=== PATIENT | male | born 1965 | race Caucasian/White ===

== ENCOUNTER 2024-07-21 15:33 | Inpatient (IN) | payer SELFPAY ==
[2024-07-21] MEDS ORDERED: VANCOMYCIN 1 GM/VIAL ONE (16:03)
[2024-07-21] MEDS ORDERED: NA CHLORIDE 0.9% 500 ML ONE (16:04)
[2024-07-21] MEDS ORDERED: ACETAMINOPHEN 500 MG TAB ONE (16:04)
[2024-07-21] MEDS ORDERED: FAMOTIDINE 20 MG/2 ML VIAL IV ONE (16:04)
[2024-07-21] MEDS ORDERED: NA CHLORIDE 0.9% 100 ML ONE (16:04)
[2024-07-21] MEDS ORDERED: TDAP (DIPHTH,PERTUSS(ACELL),TET VAC) 0.5 ML VIAL IMVAC ONE (16:04)
[2024-07-21] MEDS ORDERED: PIPERACIL/TAZO 3.375 GM VIAL IV ONE (16:05)
[2024-07-21] MEDS ORDERED: NA CHLORIDE 0.9% 3,000 ML ONE (16:05)
[2024-07-21 16:55] LABS: Absolute Eosinophils 0.1 K/uL (0-0.5); Absolute Lymphocytes (CBC) 0.7 K/uL (0.7-4.9); Absolute Monocytes 1.4 K/uL (0.1-1.3); Absolute Neutrophil 12.8 K/uL (1.8-8.0); Basophils % 0.2 % (0-1.3); Eosinophils % 0.4 % (0-4.4); Hematocrit 43.1 % (39.6-49.0); Hemoglobin 15.1 g/dL (13.6-17.9); Lymphocytes % 4.9 % (15.3-44.8); MCH 33.1 pg (27.0-35.0); MCV 94.6 fL (80-100); MPV 7.4 fL (7.6-11.3); Monocytes % 9.3 % (3.3-12.3); Neutrophils % 85.2 % (41.7-73.7); Platelets 371 thou/uL (152-406); RBC Red Blood Cell Count 4.56 M/uL (4.33-5.43); Red Cell Distribution Width 12.1 % (12.1-15.2)
[2024-07-21 16:56] LABS: PT Prothrombin Time 13.9 SECONDS (10-13.0); Protime INR 1.23
[2024-07-21 17:10] LABS: ALT/SGPT 17 U/L (16-61); Albumin 3.1 g/dL (3.4-5.0); Albumin/Globulin Ratio 0.7 (1.1-1.8); Alkaline Phosphatase 125 U/L (45-117); Anion Gap 11.2 mEq/L (5.0-15.0); BUN Blood Urea Nitrogen 17 mg/dL (7-18); Bicarbonate 25 mEq/L (21-32); Bilirubin Direct 0.2 mg/dL (0-0.2); Bilirubin Indirect, Calculated 0.5 mg/dL (0.2-0.8); Bilirubin Total 0.7 mg/dL (0.2-1.0); Globulin 4.5 g/dL (2.3-3.5); Glomerular Filtration Rate 76 ml/min (=/>90); Glucose Level 389 mg/dL (74-106); Magnesium 2.3 mg/dL (1.6-2.4); NT PRO-BNP 381 pg/mL (<125); Potassium 4.2 mEq/L (3.5-5.1); Protein, Total 7.6 g/dL (6.4-8.2); Sodium Level 125 mEq/L (136-145); Troponin High Sensitivity 12.7 pg/mL (<58.9)
[2024-07-21 17:12] LABS: AST/SGOT < 10 U/L (15-37)
[2024-07-21 17:56] LABS: Blood Morphology Comment NOT SEEN (NOT SEEN); Platelet Estimate ADEQ; White Blood Cell Scan OK (OK)
--- NOTE | 2024-07-21 18:10 | RAD REPORT ---
Exam:Foot Right 3 View CLINICAL HISTORY: Right foot pain FINDINGS: No fracture or dislocation seen. 1.5 cm radiopaque foreign body within the subcutaneous tissues adjacent to the first terminal tuft. Soft tissue swelling. No bony erosions visualized.
--- NOTE | 2024-07-21 18:11 | RAD REPORT ---
Procedure: Chest Single View HISTORY: Cough COMPARISON: 2021 FINDINGS: The lungs appear clear of acute infiltrate. No significant pleural effusion noted. The heart is probably upper limits normal size. IMPRESSION: No acute abnormality is displayed.
--- NOTE | 2024-07-21 19:39 | EDPHYS ---
Physician Documentation [facility] Name: Ramez Chong Age: 59 yrs Sex: Male : 1965 Arrival Date: 07/21/2024 Time: 15:33 Bed 7 Private MD: GEMMA Physician Juan Pacheco HPI: 07/21 19:27 This 59 yrs old Male presents to ER via Wheelchair with complaints of Foot kev Pain. 19:27 The patient presents with an abscess, small, decreased range of motion, an injury, kev pain, swelling, tenderness. The complaints affect the right foot, ball of right foot, right first toe and right second toe. Context: The problem was sustained at an unknown location, resulted from an unknown cause, the patient can partially bear weight. Onset: The symptoms/episode began/occurred 3 day(s) ago. Modifying factors: The symptoms are alleviated by nothing, the symptoms are aggravated by weight bearing, movement, wearing shoes. Associated signs and symptoms: Pertinent positives: calf tenderness, fever, swelling, warmth. Severity of symptoms: At their worst the symptoms were moderate, in the emergency department the symptoms are unchanged. The patient has not experienced similar symptoms in the past. Historical: - Allergies: 15:42 No Known Allergies; hb - Home Meds: 15:42 None [Active]; hb - PMHx: 15:42 diabetes mellitus; Hypertensive disorder; hb - PSHx: 15:42 Tonsillectomy; hb - Immunization history:: Adult Immunizations up to date. - Infectious Disease History:: Denies. - Social history:: Smoking status: Patient reports the use of cigarette tobacco products. ROS: 19:31 Eyes: Negative for injury, pain, redness, and discharge, ENT: Negative for injury, kev pain, and discharge, Neck: Negative for injury, pain, and swelling, Cardiovascular: Negative for chest pain, palpitations, and edema, Respiratory: Negative for shortness of breath, cough, wheezing, and pleuritic chest pain, Abdomen/GI: Negative for abdominal pain, nausea, vomiting, diarrhea, and constipation, Back: Negative for injury and pain, : Negative for injury, bleeding, discharge, and swelling, Neuro: Negative for headache, weakness, numbness, tingling, and seizure, Psych: Negative for depression, anxiety, suicide ideation, homicidal ideation, and hallucinations, Allergy/Immunology: Negative for hives, rash, and allergies, Hematologic/Lymphatic: Negative for swollen nodes, abnormal bleeding, and unusual bruising, 19:31 MS/extremity: Positive for injury or acute deformity, decreased range of motion, erythema, swelling, tenderness, warmth, of the ball of right foot, right second toe, right third toe and right fourth toe, Exam: 19:33 Constitutional: This is a well developed, well nourished patient who is awake, alert, kev and in no acute distress. Head/Face: Normocephalic, atraumatic. Eyes: Pupils equal round and reactive to light, extra-ocular motions intact. Lids and lashes normal. Conjunctiva and sclera are non-icteric and not injected. Cornea within normal limits. Periorbital areas with no swelling, redness, or edema. ENT: Nares patent. No nasal discharge, no septal abnormalities noted. Tympanic membranes are normal and external auditory canals are clear. Oropharynx with no redness, swelling, or masses, exudates, or evidence of obstruction, uvula midline. Mucous membranes moist. Neck: Trachea midline, no thyromegaly or masses palpated, and no cervical lymphadenopathy. Supple, full range of motion without nuchal rigidity, or vertebral point tenderness. No Meningismus. Chest/axilla: Normal chest wall appearance and motion. Nontender with no deformity. No lesions are appreciated. Respiratory: Lungs have equal breath sounds bilaterally, clear to auscultation and percussion. No rales, rhonchi or wheezes noted. No increased work of breathing, no retractions or nasal flaring. Abdomen/GI: Soft, non-tender, with normal bowel sounds. No distension or tympany. No guarding or rebound. No evidence of tenderness throughout. Back: No spinal tenderness. No costovertebral tenderness. Full range of motion. Male : Normal genitalia with no discharge or lesions. Neuro: Awake and alert, GCS 15, oriented to person, place, time, and situation. Cranial nerves II-XII grossly intact. Motor strength 5/5 in all extremities. Sensory grossly intact. Cerebellar exam normal. Normal gait. Psych: Awake, alert, with orientation to person, place and time. Behavior, mood, and affect are within normal limits. 19:33 Cardiovascular: Rate: tachycardic, actual rate is 109 bpm, Rhythm: regular, Pulses: Pulses are 4+ in bilateral radial, brachial, femoral, popliteal, posterior tibial and and dorsalis pedis arteries.. Heart sounds: normal, Edema: is not appreciated, JVD: is not appreciated, 19:33 ECG was reviewed by the Attending Physician. 19:33 Musculoskeletal/extremity: ROM: limited active range of motion, limited passive range of motion, limited active range of motion due to pain, limited passive range of motion due to pain, Circulation is intact in all extremities. decreased sensation, Compartment Syndrome exam of affected extremity: is normal. Weight bearing: can bear weight with assistance only, assist, DVT Exam: negative Homans' sign noted on exam, no appreciated bluish discoloration, pain, swelling, tenderness, erythema, increased warmth, that is moderate, that is marked, of the right leg, of the ball of right foot, right first toe, right second toe, right third toe and right fourth toe, Calves: are tender, on right, 19:33 Skin: abscess, that is small, that is moderate sized, of the right first toe, right second toe and right third toe, cellulitis, that is moderate, on the right foot, induration, that is moderate is noted, injury, Vital Signs: 15:39 BP 154 / 92; Pulse 116; Resp 18; Temp 99.8(O); Pulse Ox 97% on R/A; Weight 111.13 kg; hb Height 6 ft. 1 in. ; Pain 9/10; 17:00 BP 147 / 88; Pulse 96; Resp 15; Temp 100.5; Pulse Ox 97% ; jl7 18:23 BP 159 / 92; Pulse 96; Resp 15; Temp 99.3; Pulse Ox 97% ; jl7 19:00 BP 158 / 82; Pulse 97; Resp 18; Pulse Ox 95% on R/A; al5 19:30 BP 157 / 99; Pulse 97; Resp 16; Pulse Ox 96% on R/A; al5 20:30 BP 138 / 99; Pulse 91; Resp 16; Pulse Ox 96% on R/A; al5 15:39 Body Mass Index 32.32 (111.13 kg, 185.42 cm) hb 15:39 Pain Scale: Adult hb MDM: 15:53 Medical Screening Exam initiated kev 19:39 Differential diagnosis: fracture, foreign body, arthritis, gout, cellulitis. Data [facility] reviewed: vital signs, nurses notes, lab test result(s), EKG, radiologic studies, doppler, plain films. Consideration of Admission/Observation Patient was admitted/placed on observation. Escalation of care including admission/observation considered. I considered the following discharge prescriptions or medication management in the emergency department Medications were administered in the Emergency Department. See MAR. Independent interpretation of the following test(s) in the Emergency Department EKG: See my EKG interpretation above. Test considered but Not performed: MRI: no mri foot. Historians other than the Patient: Spouse/Significant Other: geri informed. Care significantly affected by the following chronic conditions: Diabetes, Hypertension, Obesity. Counseling: I had a detailed discussion with the patient and/or guardian regarding the historical points, exam findings, and any diagnostic results supporting the discharge/admit diagnosis, the presence of at least one elevated blood pressure reading (>120/80) during this emergency department visit, lab results, the need for further work-up and treatment in the hospital. 07/21 15:55 Order name: Basic Metabolic Panel; Complete Time: 19:17 [facility] 07/21 15:55 Order name: CBC with Diff; Complete Time: 19:17 [facility] 07/21 15:55 Order name: LFT's; Complete Time: 19:17 kev 07/21 15:55 Order name: Magnesium; Complete Time: 19:17 kev 07/21 15:55 Order name: NT PRO-BNP; Complete Time: 19:17 [facility] 07/21 15:55 Order name: PT-INR; Complete Time: 19:17 kev 07/21 15:55 Order name: Troponin HS; Complete Time: 19:17 kev 07/21 15:55 Order name: Blood Culture Adult (2) [facility] 07/21 16:07 Order name: Lactate w/ 2H reflex if indic.; Complete Time: 19:17 la1 07/21 17:56 Order name: CBC Smear Scan; Complete Time: 19:17 EDMS 07/21 19:21 Order name: Urine Osmolality [facility] 07/21 19:21 Order name: Urine Sodium Random 07/21 19:21 Order name: Osmolality, Serum [facility] 07/21 19:30 Order name: Wound Culture [facility] 07/21 20:05 Order name: CBC with Automated Diff EDMS 07/21 20:05 Order name: CBC with Automated Diff EDNV 07/21 20:05 Order name: Comprehensive Metabolic Panel [facility] 07/21 20:05 Order name: Comprehensive Metabolic Panel [facility] 07/21 20:37 Order name: Glucose, Ancillary Testing [facility] 07/21 15:55 Order name: XRAY Chest (1 view); Complete Time: 19:17 [facility] 07/21 15:55 Order name: Foot Right 3 View XRAY; Complete Time: 19:17 [facility] 07/21 19:30 Order name: US Extremity Venous W Compression Seven [facility] 07/21 15:55 Order name: EKG; Complete Time: 15:55 [facility] 07/21 20:05 Order name: CONS Physician Consult [facility] 07/21 15:55 Order name: Cardiac monitoring; Complete Time: 18:54 [facility] 07/21 15:55 Order name: EKG - Nurse/Tech; Complete Time: 16:13 [facility] 07/21 15:55 Order name: IV Saline Lock; Complete Time: 18:54 [facility] 07/21 15:55 Order name: Labs collected and sent; Complete Time: 18:54 [facility] 07/21 15:55 Order name: O2 Per Protocol; Complete Time: 18:54 [facility] 07/21 15:55 Order name: O2 Sat Monitoring; Complete Time: 18:54 [facility] 07/21 15:56 Order name: IV Saline Lock - Large Bore; Complete Time: 17:25 [facility] 07/21 19:30 Order name: Wound dressing: wet to dry; Complete Time: 19:56 [facility] EC:33 Rate is 109 beats/min. Rhythm is regular. QRS [place] is Normal. ME interval is normal. [facility] QRS interval is normal. QT interval is normal. No Q waves. T waves are Normal. No ST changes noted. Clinical impression: Sinus tachycardia and No evidence of ischemia. Interpreted by me. Reviewed by me. Administered Medications: 16:30 Drug: NS 0.9% IV (30 ml/kg) 30 ml/kg IV at bolus once; Sepsis Protocol; to be given as jl7 a bolus over 90 minutes Route: IV; Rate: bolus; Site: right antecubital; 18:30 Follow up: Response: No adverse reaction; IV Status: Completed infusion; IV Intake: jl7 333.9ml 16:30 Drug: vancoMYCIN IVPB 2 grams IVPB at calculated rate once Route: IVPB; Rate: jl7 calculated rate; Site: right antecubital; 18:30 Follow up: Response: No adverse reaction; IV Status: Completed infusion jl7 16:45 Drug: Piperacillin-Tazobactam IVPB 3.375 grams IVPB once over 60 mins; (mix in NS 100 jl7 mL) Route: IVPB; Infused Over: 60 mins; Site: left hand; 17:45 Follow up: Response: No adverse reaction; IV Status: Completed infusion 7 17:01 Drug: Famotidine IVP 20 mg IVP once; dilute with 10 mL 0.9% NaCl; give over 2 minutes jl7 Route: IVP; Site: left hand; 19:00 Follow up: Response: No adverse reaction 7 17:02 Drug: Boostrix Tdap IM 0.5 ml IM once; as a single dose Route: IM; Site: right deltoid; 19:05 Follow up: Response: No adverse reaction jl7 18:23 Not Given (Pt 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 and 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): [id number] mg PO once jl7 20:31 Drug: Insulin Regular Human IVP 10 units IVP once {Co-Signature: kd3 (Anny Laughlin al5 RN).} Route: IVP; Site: left hand; 21:00 Follow up: Response: No adverse reaction; Medication Administered at Departure al5 20:34 Drug: Lovenox Sub-Q 40 mg Sub-Q once Route: Sub-Q; Site: right lower abdomen; al5 21:00 Follow up: Response: No adverse reaction al5 20:35 Not Given (not availablee): insulin [id number] units Sub-Q once al5 21:24 Not Given (medications unavailable, charge nurse awaree): Banana Bag - (ns 0.9% 1000 al5 ml, folic acid ivpb 1 mg, [id number] mg, multivitamin1 amp) IV at 125 ml/hr once Disposition Summary: 07/21/24 19:39 Hospitalization Ordered Notes: Hospitalization Status: Inpatient Admission kev Provider: Gareth Galvan cha Location: Telemetry/MedSurg (Inpatient) kev Condition: Fair kev Problem: new kev Symptoms: have worsened kev Bed/Room Type: Standard kev Room Assignment: 406(07/21/24 20:13) vc1 Diagnosis - Type 1 diabetes mellitus with hyperglycemia kev - Cellulitis and acute lymphangitis of other parts of limb - right foot, toes kev extensive - Fever, unspecified kev - Elevated white blood cell count kev Forms: - Medication Reconciliation Form kev - SBAR form kev - Leadership Thank You Letter kev Signatures: Dispatcher [employer] EDMS Jaun Pacheco MD MD cha Baxter, Heather, RN RN Jacinto Rdz RN RN jl7 Tomeka Ramírez RN RN vc1 Elizabeth Zambrano RN RN al5 Anny Laughlin RN kd3 Corrections: (The following items were deleted from the chart) 19:31 19:31 Wound Culture+BA.LAB.BRZ ordered. EDNV EDMS 20:13 19:39 kev vc1
--- NOTE | 2024-07-21 19:39 | ER ---
Nurse's Notes [facility] Name: Ramez Chong Age: 59 yrs Sex: Male : 1965 Arrival Date: 07/21/2024 Time: 15:33 Bed 7 Private MD: Diagnosis: Type 1 diabetes mellitus with hyperglycemia;Cellulitis and acute lymphangitis of other parts of limb-right foot, toes extensive;Fever, unspecified;Elevated white blood cell count Presentation: 07/21 15:39 Chief complaint: Right foot redness, swelling, and discolored toes x 3 days. Sent from [facility], gave Tylenol for T102. Coronavirus screen: At this time, the client does not indicate any symptoms associated with coronavirus-19. Ebola Screen: No symptoms or risks identified at this time. Initial Sepsis Screen: Does the patient meet any 2 criteria? No. Patient's initial sepsis screen is negative. Does the patient have a suspected source of infection? No. Patient's initial sepsis screen is negative. Risk Assessment: Do you want to hurt yourself or someone else? Patient reports no desire to harm self or others. Onset of symptoms was July 18, 2024. 15:39 Method Of Arrival: Wheelchair hb 15:39 Acuity: VIVEK 2 hb Historical: - Allergies: 15:42 No Known Allergies; hb - Home Meds: 15:42 None [Active]; hb - PMHx: 15:42 diabetes mellitus; Hypertensive disorder; hb - PSHx: 15:42 Tonsillectomy; hb - Immunization history:: Adult Immunizations up to date. - Infectious Disease History:: Denies. - Social history:: Smoking status: Patient reports the use of cigarette tobacco products. Screenin:00 [facility] ED Fall Risk Assessment (Adult) History of falling in the last 3 months, jl7 including since admission No falls in past 3 months (0 pts) Confusion or Disorientation No (0 pts) Intoxicated or Sedated No (0 pts) Impaired Gait No (0 pts) Mobility Assist Device Used No (0 pt) Altered Elimination No (0 pt) Score/Fall Risk Level 0 - 2 = Low Risk Oriented to surroundings, Maintained a safe environment. Abuse screen: Denies threats or abuse. Denies injuries from another. Nutritional screening: No deficits noted. Tuberculosis screening: No symptoms or risk factors identified. Assessment: 19:15 General: Appears in no apparent distress. comfortable, Behavior is calm, cooperative. al5 Pain: Complains of pain in right foot. Neuro: Level of Consciousness is awake, alert, obeys commands, Oriented to person, place, time, situation. Cardiovascular: Capillary refill < 3 seconds Patient's skin is warm and dry. Rhythm is sinus rhythm. Respiratory: Airway is patent Respiratory effort is even, unlabored, Respiratory pattern is regular, symmetrical. GI: No signs and/or symptoms were reported involving the gastrointestinal system. : No signs and/or symptoms were reported regarding the genitourinary system. EENT: No signs and/or symptoms were reported regarding the EENT system. Derm: wound to bottom of R foot, redness noted. R third and fourth toes of blackish-purple color. Musculoskeletal: Reports pain in right foot. 20:39 Reassessment: Patient appears in no apparent distress at this time. No changes from al5 previously documented assessment. Patient and/or family updated on plan of care and expected duration. Pain level reassessed. Patient is alert, oriented x 3, equal unlabored respirations, skin warm/dry/pink. Vital Signs: 15:39 BP 154 / 92; Pulse 116; Resp 18; Temp 99.8(O); Pulse Ox 97% on R/A; Weight 111.13 kg; hb Height 6 ft. 1 in. ; Pain 9/10; 17:00 BP 147 / 88; Pulse 96; Resp 15; Temp 100.5; Pulse Ox 97% ; jl7 18:23 BP 159 / 92; Pulse 96; Resp 15; Temp 99.3; Pulse Ox 97% ; jl7 19:00 BP 158 / 82; Pulse 97; Resp 18; Pulse Ox 95% on R/A; al5 19:30 BP 157 / 99; Pulse 97; Resp 16; Pulse Ox 96% on R/A; al5 20:30 BP 138 / 99; Pulse 91; Resp 16; Pulse Ox 96% on R/A; al5 15:39 Body Mass Index 32.32 (111.13 kg, 185.42 cm) hb 15:39 Pain Scale: Adult hb ED Course: 15:36 Patient arrived in ED. al6 15:42 Triage completed. hb 15:43 Arm band placed on. hb 15:53 Juan Pacheco MD is Attending Physician. kev 15:59 Jacinto Cuevas, KYMBERLY is Primary Nurse. jl7 16:03 Patient placed in an exam room, on a stretcher. ll1 16:13 EKG done, by ED staff, reviewed by Juan Pacheco MD. em1 16:20 Inserted saline lock: 20 gauge in right antecubital area, using aseptic technique. jl7 Blood collected. Flushed with 10 mL NS. 16:20 Initial lab(s) drawn, by me, sent to lab. First set of blood cultures drawn by me. jl7 16:25 Second set of blood cultures drawn by me. Inserted saline lock: 20 gauge in left hand, jl7 using aseptic technique. Blood collected. Flushed with 10 mL NS. 17:00 Patient has correct armband on for positive identification. Placed in gown. Bed in low jl7 position. Call light in reach. Side rails up X2. Provided Education on: use of call russell. Client placed on continuous cardiac and pulse oximetry monitoring. NIBP monitoring applied. range conservationist on. Pulse ox on. 17:56 XRAY Chest (1 view) In Process Unspecified. EDMS 17:56 Foot Right 3 View XRAY In Process Unspecified. EDMS 19:30 No provider procedures requiring assistance completed. al5 19:37 Gareth Galvan MD is Hospitalizing Provider. kev 20:39 Patient admitted, IV remains in place. al5 Administered Medications: 16:30 Drug: NS 0.9% IV (30 ml/kg) 30 ml/kg IV at bolus once; Sepsis Protocol; to be given as jl7 a bolus over 90 minutes Route: IV; Rate: bolus; Site: right antecubital; 18:30 Follow up: Response: No adverse reaction; IV Status: Completed infusion; IV Intake: jl7 333.9ml 16:30 Drug: vancoMYCIN IVPB 2 grams IVPB at calculated rate once Route: IVPB; Rate: jl7 calculated rate; Site: right antecubital; 18:30 Follow up: Response: No adverse reaction; IV Status: Completed infusion jl7 16:45 Drug: Piperacillin-Tazobactam IVPB 3.375 grams IVPB once over 60 mins; (mix in NS 100 jl7 mL) Route: IVPB; Infused Over: 60 mins; Site: left hand; 17:45 Follow up: Response: No adverse reaction; IV Status: Completed infusion jl7 17:01 Drug: Famotidine IVP 20 mg IVP once; dilute with 10 mL 0.9% NaCl; give over 2 minutes jl7 Route: IVP; Site: left hand; 19:00 Follow up: Response: No adverse reaction jl7 17:02 Drug: Boostrix Tdap IM 0.5 ml IM once; as a single dose Route: IM; Site: right deltoid; jl7 19:05 Follow up: Response: No adverse reaction jl7 18:23 Not Given (Pt 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): [id number] mg PO once jl7 20:31 Drug: Insulin Regular Human IVP 10 units IVP once {Co-Signature: kd3 (Anny Laughlin RN).} Route: IVP; Site: left hand; 21:00 Follow up: Response: No adverse reaction; Medication Administered at Departure al5 20:34 Drug: Lovenox Sub-Q 40 mg Sub-Q once Route: Sub-Q; Site: right lower abdomen; al5 21:00 Follow up: Response: No adverse reaction al5 20:35 Not Given (not availablee): insulin units Sub-Q once al5 21:24 Not Given (medications unavailable, charge nurse awaree): Banana Bag - (ns 0.9% 1000 al5 ml, folic acid ivpb 1 mg, [id number] mg, multivitamin1 amp) IV at 125 ml/hr once Medication: 17:00 Vaccine Information Statement (VIS) provided today. Questions and/or concerns jl7 addressed. VIS edition date: November 06, 2020. Intake: 18:30 IV: 334ml; Total: 334ml. jl7 Outcome: 19:39 Decision to Hospitalize by Provider. kev 21:24 Admitted to Med/surg accompanied by tech, family with patient, via stretcher, room 406, al5 with chart, 21:24 Condition: stable 21:24 Instructed on the need for admit, 21:38 Patient left the ED. kd3 Signatures: Dispatcher [employer] EDMS Juan Pacheco MD MD cha Martinez, Eric em1 Lanny Magaña, RN RN Jacinto Rdz RN RN adolfo7 Mirian Ceja RN RN ll1 Anny Laughlin, RN RN kd3 Elizabeth Zambrano RN RN al5 Michelle Hernandez al6 Anny Laughlin RN kd3 Corrections: (The following items were deleted from the chart) 15:44 15:39 Chief complaint: Right foot redness, swelling, and discolored toes x 3 days. hb hb
[2024-07-21] MEDS ORDERED: ONDANSETRON 4 MG/2 ML VIAL IV PRN (20:00)
--- NOTE | 2024-07-21 20:00 | P.HP ---
Certification for Inpatient Patient admitted to: Inpatient With expected LOS: >2 Midnights Practitioner: I am a practitioner with admitting privileges, knowledge of patient current condition, hospital course, and medical plan of care. Services: Services provided to patient in accordance with Admission requirements found in Title 42 Section 412.3 of the Code of Federal Regulations Patient History Date of Service: 07/21/24 Reason for admission: Diabetic foot History of Present Illness: 59 yrs old Male with past medical history of hypertension, diabetes who was brought to ER with pain in the right foot which has been going on for the last week and has been progressively worsening. Denies any fever or chills. Denies any trauma. Patient started having redness and swelling of right foot especially first toe and second toe. Denies any bleeding. Having subjective fever and chills. Denies any chest pain or shortness of breath. No nausea vomiting or diarrhea. Has difficulty in ambulating. Has a history of neuropathy Patient was assessed in the ER and is admitted for further management of diabetic foot Allergies No Known Allergies Allergy (Unverified 07/21/24 20:05) Home medications list reviewed: Yes - Past Medical/Surgical History Past Medical History: Reviewed- Non-Contributory -: DM, HTN Past Surgical History: Reviewed- Non-Contributory - Social History Smoking Status: Former smoker Review of Systems 10-point ROS is otherwise unremarkable Other: Constitutional: Reports: generalized weakness. Skin: Denies: rash. Allergy/Immun: Denies: rhinorrhea, sneezing. Eyes: Denies: visual loss/blurred. ENT: Denies: earache, nasal congestion. Respiratory: Denies: non productive cough. Cardiovascular: Denies: chest pain, palpitations. GI: Denies: diarrhea, nausea. : Denies: dysuria. Musculoskeletal: Reports: arthritis. Denies: extremity pain. Heme: Denies: bleeding. Endocrine: Denies: polydipsia. Neuro: Reports: dizziness, gait problem, lightheaded, spinning sensation. Psych: Reports: anxiety. All systems rev & neg: except as noted Physical Examination - Vital Signs Temperature: 98.2 F Blood Pressure: 146/72 Pulse: 78 Respirations: 18 Pulse Ox (%): 94 - Physical Exam General: Alert, Oriented x3, Mild distress HEENT: Atraumatic, Normocephalic Neck: Supple Respiratory: Clear to auscultation bilaterally, Normal air movement Cardiovascular: Regular rate/rhythm, Normal S1 S2 Capillary refill: <2 Seconds Gastrointestinal: Soft and benign, W/out hepatosplenomegaly Musculoskeletal: No clubbing, Erythema, Tenderness, Warmth Integumentary: Tenderness/swelling, Erythema, Warmth Neurological: Other (Alert awake nonfocal) Lymphatics: No axilla or inguinal lymphadenopathy - Studies Laboratory Data (last 24 hrs) 07/21/24 07/21/24 07/21/24 16:25 16:25 16:25 WBC 15.00 H Hgb 15.1 Hct 43.1 Plt Count 371 PT 13.9 H INR 1.23 Sodium 125 L Potassium 4.2 BUN 17 Creatinine 1.12 Glucose 389 H Magnesium 2.3 Total Bilirubin 0.7 AST < 10 L ALT 17 Alkaline Phosphatase 125 H Assessment and Plan - Plan Diabetic foot Leukocytosis Started on IV antibiotic X-ray findings noted Surgical consult Pain medications titrated Will obtain cultures Monitor CBC in a.m. Change antibiotic as per sensitivity May need debridement Will keep n.p.o. postmidnight Hyponatremia Dehydration Started on IV hydration Electrolytes monitor and replace accordingly Hypertension Antihypertensives titrated Continue home medications and titrate as needed Hyperlipidemia Continue statin Diabetes uncontrolled with hyperglycemia Insulin sliding scale Accu-Chek before every meal and at bedtime GI/DVT prophylaxis Advanced directive full code Discharge Plan: Home Plan to discharge in: 48 Hours - Advance Directives Does patient have a Living Will: No Does patient have a Durable POA for Healthcare: No - Code Status/Comfort Care Code Status: Full Code Time Spent Managing Pts Care (In Minutes): 48
[2024-07-21] MEDS ORDERED: D10W 125 ML IV PRN (20:03)
[2024-07-21] MEDS ORDERED: GLUCAGON 1 MG/VIAL IM PRN (20:03)
[2024-07-21] MEDS ORDERED: MORPHINE 2 MG/ML SYR IV PRN (20:04)
[2024-07-21] MEDS ORDERED: HYDROCODONE/APAP 5/325 MG TAB PO PRN (20:04)
[2024-07-21] MEDS ORDERED: ENOXAPARIN 40 MG/0.4 ML SQ ONE (20:29)
[2024-07-21] MEDS ORDERED: INSULIN REGULAR (HUMAN) 100 UNIT/ML ONE (20:29)
[2024-07-21] MEDS ORDERED: VANCOMYCIN 1 GM in NA CHLORIDE 0.9% 250 ML IVPB SCH (21:00)
[2024-07-21] MEDS: NA CHLORIDE 0.9% 1,000 ML IV SCH (21:35)
[2024-07-21 21:42] VITALS: BMI 32.3
[2024-07-21] MEDS: ACETAMINOPHEN 325 MG TABLET PO PRN (21:50)
--- NOTE | 2024-07-21 23:58 | RAD REPORT ---
BILATERAL LOWER EXTREMITY VENOUS DOPPLER INDICATION: 59-year-old male with lower extremity pain. COMPARISON: No relevant imaging studies available. TECHNIQUE: Real-time compression sonography combined with color flow Doppler and spectral waveform an alysis was performed evaluating the lower extremity veins. FINDINGS: The bilateral common femoral vein, superficial femoral vein, proximal greater saphenous vein, pro ximal deep femoral vein, and popliteal vein demonstrated normal compressibility. No intraluminal thrombus was identified. There was normal flow and augmentation. Visualized portions of the bilate ral posterior tibial veins are patent. Nonspecific right inguinal lymph nodes, largest measures 1.7 x 1.7 x 1.3 cm and demonstrates fatty hilum, potentially reactive. Please clinically correlate. IMPRESSION: 1. No evidence for bilateral lower extremity deep vein thrombosis. 2. Nonspecific right inguinal lymphadenopathy, potentially reactive, although nonspecific. Please cli nically correlate. Electronically signed by: Malcolm Pemberton MD 07/21/2024 11:51 PM CDT Due to temporary technical issues with the P[employer] reporting system, reports are being anali d by the in-house radiologist without review as a courtesy to ensure prompt reporting the interpreting radiologist is fully responsible for the content of the report. Transcribed Date/Time: 07/21/2024 11:58 PM
[2024-07-22] MEDS: INSULIN REGULAR (HUMAN) 100 UNIT/ML SQ SCH (00:25)
[2024-07-22] MEDS: PIPER TAZO 3.375 GM in NA CHLORIDE 0.9% 100 ML IV SCH (00:25)
[2024-07-22] MEDS: VANCOMYCIN 2 GM in NA CHLORIDE 0.9% 500 ML IVPB SCH ×2 (04:00→17:00)
[2024-07-22] MEDS: VANCOMYCIN 1 GM/VIAL ONE (04:25)
[2024-07-22] MEDS: NA CHLORIDE 0.9% 500 ML ONE (04:26)
[2024-07-22 06:12] LABS: Absolute Basophils 0.1 K/uL (0-0.5); Absolute Eosinophils 0.2 K/uL (0-0.5); Absolute Lymphocytes (CBC) 1.2 K/uL (0.7-4.9); Absolute Monocytes 1.5 K/uL (0.1-1.3); Absolute Neutrophil 10.1 K/uL (1.8-8.0); Basophils % 0.4 % (0-1.3); Eosinophils % 1.7 % (0-4.4); Hematocrit 38.1 % (39.6-49.0); Lymphocytes % 9.1 % (15.3-44.8); MCH 32.5 pg (27.0-35.0); MCHC 34.2 g/dL (32.0-36.0); MCV 95.1 fL (80-100); MPV 7.2 fL (7.6-11.3); Monocytes % 11.7 % (3.3-12.3); Neutrophils % 77.1 % (41.7-73.7); Nucleated Red Blood Cells % 0.1 % (0-0); Platelets 374 thou/uL (152-406); RBC Red Blood Cell Count 4.01 M/uL (4.33-5.43); Red Cell Distribution Width 12.2 % (12.1-15.2)
[2024-07-22 06:30] LABS: Albumin 2.5 g/dL (3.4-5.0); Albumin/Globulin Ratio 0.7 (1.1-1.8); Anion Gap 5.2 mEq/L (5.0-15.0); Bilirubin Total 0.5 mg/dL (0.2-1.0); Globulin 3.8 g/dL (2.3-3.5); Potassium 4.2 mEq/L (3.5-5.1); Protein, Total 6.3 g/dL (6.4-8.2)
[2024-07-22] MEDS: ENOXAPARIN 40 MG/0.4 ML SQ SCH (08:04)
[2024-07-22] MEDS ORDERED: HYDRALAZINE HCL 20 MG/ML VIAL IV PRN (11:51)
--- NOTE | 2024-07-22 11:56 | P.PN ---
Subjective Date of Service: 07/22/24 Chief Complaint: Diabetic foot Subjective: No chest pain or shortness of breath. No nausea or vomiting. No abdominal pain. No obvious bleeding. Looks comfortable in the bed. Right foot is number, difficult to evaluate pain. Objective: General appearance: Alert and comfortable CVS: Normal S1 and S2 Lungs: Clear to auscultation bilaterally Abdomen: Soft, bowel sounds present, no tenderness Extremities: No lower extremity edema. Right foot has dressing. Physical Examination - Vital Signs Temperature: 98.6 F Blood Pressure: 153/80 Pulse: 99 Respirations: 18 Pulse Ox (%): 96 - Studies Laboratory Data (last 24 hrs) 07/21/24 07/21/24 07/21/24 16:25 16:25 16:25 WBC 15.00 H Hgb 15.1 Hct 43.1 Plt Count 371 PT 13.9 H INR 1.23 Sodium 125 L Potassium 4.2 BUN 17 Creatinine 1.12 Glucose 389 H Magnesium 2.3 Total Bilirubin 0.7 AST < 10 L ALT 17 Alkaline Phosphatase 125 H Assessment And Plan - Plan 1. Diabetic foot infection with foreign body on xray -Leukocytosis: Improving -Started on IV antibiotic -Surgical consult on board -f/u cultures - will need debridement /foreign body removal. - Venous ultrasound negative except right inguinal lymphadenopathy which is probably reactive. 2. Hyponatremia Probably related to volume depletion and hyperglycemia, sodium improving. 3. Hypertension -Continue lisinopril, monitor closely. 4. Hyperlipidemia 5. Diabetes uncontrolled with hyperglycemia Insulin sliding scale for now, start Lantus and mealtime insulin once he start eating. Accu-Chek before every meal and at bedtime Plan discussed with the patient and nursing staff. All questions answered.
[2024-07-22] MEDS ORDERED: LIDOCAINE 2% MPF 5 ML VIAL ONE (15:00)
[2024-07-22] MEDS ORDERED: ONDANSETRON 4 MG/2 ML VIAL ONE (15:00)
[2024-07-22] MEDS ORDERED: FENTANYL CITR 100 MCG/2 ML ONE (15:00)
[2024-07-22] MEDS ORDERED: MIDAZOLAM HCL 2 MG/2 ML INJ ONE (15:00)
[2024-07-22] MEDS ORDERED: propofoL 200 MG/20 ML VIAL IV ONE (15:00)
[2024-07-22] MEDS: BUPIVACAINE 0.5% PF 10 ML VIAL ONE (15:55)
[2024-07-22] MEDS: COLLAGENASE 30 GM OINTMENT TOP ONE (16:01)
--- NOTE | 2024-07-22 16:15 | P.BOP ---
Preoperative diagnosis: infected necrotic right foot ulcer Postoperative diagnosis: same Primary procedure: Excisional debridment deep subQ of right foot necrotic ulcer 8x3cm Estimated blood loss: <10cc Specimen: culture, necrotic tissue Findings: infected necrotic R foot ulcer involving distal plantar/dorsal foot 2,3,4to Anesthesia: General Complications: None Drain(s): Other (santyl gauze) Transferred to: Recovery Room Condition: Good
--- NOTE | 2024-07-22 20:09 | CON ---
Date of Consultation: 07/22/2024 History Of Present Illness: Mr. Chong is a 59-year-old patient with history of diabetes, who came to us with cellulitis of the right foot with necrotic wounds that involved only the plantar and dorsal aspect of the half of his foot distally, but also the second, third, and fourth toes. He is diabetic . He likes to smoke. He walks around the house barefooted, so he thinks he hit something there. Di d not improve, came to the ER, diagnosed with the cellulitis and necrotic ulcers and a surgical consu lt was obtained for debridement. He understand the importance of smoking cessation, he was explained before. He also understand the importance of proper shoes, diabetes control. He understand the imp ortance of a diet. Past Medical History: Include once again diabetes and hypertension. Past Surgical History: None. Social History: He smoke occasionally. He does not drink alcohol. He was once again counseled abou t smoking cessation. Allergies: NONE. Medications: Reviewed. Review of Systems: No shortness of breath. No chest pain. No fever. Patient had symptoms of the right foot swelling, increased temperature in that region, and redness. No dysuria, hematuria, hematochezia, or melena. No recent traveling out of the country. No family member sick at home. Review of Systems: Ten points otherwise unremarkable. Physical Examination: Vital Signs: Reviewed. General: The patient is awake and alert. HEENT: Pupils are equal and reactive. Anicteric. Neck: Supple. Chest: Clear. Heart: S1, S2. Abdomen: Soft and depressible. Extremities: Bilateral feet, decreased peripheral pulses. In the right foot, patient has area of ce llulitis over the distal foot region with a necrotic tissue in the dorsal and plantar distal foot wit h abscess present and involvement of the second, third, and fourth toes in that necrotic tissue. Flu ctuance present. Still have sensation over that region. Laboratory Data: Blood work shows WBC count of 15, with hemoglobin of 15.1, and platelets of 371. P otassium is 4.2 and creatinine is 0.81, total bilirubin of 0.5. Foot x-ray shows no fracture. There is still a possibility of a radiopaque foreign body, it is 1.5 cm. Assessment: 59-year-old patient with cellulitis of the right foot, necrotic ulcers present. Need de bridement. Abscess is present. The benefits, alternatives, and risks of excisional debridement full y explained, which include, but not limited to, infection, bleeding, damage to adjacent structures, a nesthesia complication, recurrence, TN, and even . He also understands this may not relieve any symptoms. He might need more than one surgical intervention. We are trying to take care of his neil t in this region. We are advising the importance of using proper shoe wear in the future. Regardles s, the foreign body sometimes is so tiny that we cannot find it at this time. There is some opacity, although it is not the toe that is involved. ANDRAE/ALEXA Voice ID: [id number] Report ID: [id number]
[2024-07-22] MEDS: NICOTINE 14 MG/PAT TD SCH (20:56)
[2024-07-22] MEDS: lisinopriL 10 MG TAB PO SCH (20:56)
[2024-07-22] MEDS: INSULIN GLARGINE 100 UNIT/ML SQ SCH (20:57)
[2024-07-23 05:44] LABS: Absolute Basophils 0.1 K/uL (0-0.5); Absolute Eosinophils 0.3 K/uL (0-0.5); Absolute Lymphocytes (CBC) 1.6 K/uL (0.7-4.9); Absolute Monocytes 1.4 K/uL (0.1-1.3); Absolute Neutrophil 8.8 K/uL (1.8-8.0); Basophils % 0.5 % (0-1.3); Eosinophils % 2.4 % (0-4.4); Hematocrit 33.9 % (39.6-49.0); Hemoglobin 11.6 g/dL (13.6-17.9); Lymphocytes % 13.5 % (15.3-44.8); MCH 32.7 pg (27.0-35.0); MCHC 34.1 g/dL (32.0-36.0); MCV 95.7 fL (80-100); MPV 7.4 fL (7.6-11.3); Monocytes % 11.8 % (3.3-12.3); Neutrophils % 71.8 % (41.7-73.7); Platelets 344 thou/uL (152-406); RBC Red Blood Cell Count 3.54 M/uL (4.33-5.43); Red Cell Distribution Width 12.2 % (12.1-15.2)
[2024-07-23 06:01] LABS: Anion Gap 6.7 mEq/L (5.0-15.0); Phosphorus 2.7 mg/dL (2.5-4.9); Potassium 3.7 mEq/L (3.5-5.1)
[2024-07-23] MEDS: POTASSIUM CL SA 10 MEQ TAB PO ONE (07:42)
--- NOTE | 2024-07-23 15:05 | P.PN ---
Subjective Date of Service: 07/23/24 Chief Complaint: Diabetic foot Subjective: No chest pain or shortness of breath. No nausea or vomiting. No abdominal pain. No obvious bleeding. Looks comfortable in the bed. Right foot is numb, difficult to evaluate pain. Objective: General appearance: Alert and comfortable CVS: Normal S1 and S2 Lungs: Clear to auscultation bilaterally Abdomen: Soft, bowel sounds present, no tenderness Extremities: No lower extremity edema. Right foot has dressing. Physical Examination - Vital Signs Temperature: 98.0 F Blood Pressure: 143/83 Pulse: 74 Respirations: 16 Pulse Ox (%): 96 Assessment And Plan - Plan 1. Diabetic foot infection with foreign body on xray -Leukocytosis: Improving -Started on IV antibiotic -Surgical consult on board -f/u cultures - s/p surgery on 07/22, f/u cultures, will request ID consult - Venous ultrasound negative except right inguinal lymphadenopathy which is probably reactive. -WBC improving 2. Hyponatremia Probably related to volume depletion and hyperglycemia, sodium improving. 3. Hypertension -Continue lisinopril, monitor closely. 4. Hyperlipidemia 5. Diabetes uncontrolled with hyperglycemia Cont Lantus and mealtime insulin added. Accu-Chek before every meal and at bedtime cont SSI 6. Anemia: sec to acute illness, monitor Plan discussed with the patient and nursing staff. All questions answered.
--- NOTE | 2024-07-23 16:27 | RAD REPORT ---
EXAM: MRI of the right foot without contrast HISTORY: Evaluate for osteomyelitis. r/o osteomyelitis COMPARISON: 07/21/2024 plain radiograph TECHNIQUE: Multiplanar multisequence MR images were obtained of the right foot without contrast. FINDINGS: Elevated T2/IR signal is seen involving the proximal phalanx of the second toe. There is mild edema i n the adjacent soft tissues. No T1 marrow replacement seen. The muscles and tendons appear intact. IMPRESSION: The proximal phalanx of the second toe demonstrates elevated T2/IR signal. Mild edema is also present in the surrounding tissues. This may be related to localized stress response or trauma. No T1 replacement to suggest osteomyelitis at this time. Please note that evaluation is limited without IV contrast.
[2024-07-23] MEDS: INSULIN REGULAR (HUMAN) 100 UNIT/ML SQ SCH (16:29)
[2024-07-24 06:18] LABS: Absolute Basophils 0.1 K/uL (0-0.5); Absolute Eosinophils 0.4 K/uL (0-0.5); Absolute Lymphocytes (CBC) 1.2 K/uL (0.7-4.9); Absolute Monocytes 1.1 K/uL (0.1-1.3); Absolute Neutrophil 5.9 K/uL (1.8-8.0); Basophils % 0.9 % (0-1.3); Eosinophils % 4.2 % (0-4.4); Hemoglobin 12.1 g/dL (13.6-17.9); Lymphocytes % 14.4 % (15.3-44.8); MCHC 34.5 g/dL (32.0-36.0); MCV 95.5 fL (80-100); MPV 7.3 fL (7.6-11.3); Monocytes % 12.3 % (3.3-12.3); Neutrophils % 68.2 % (41.7-73.7); Platelets 365 thou/uL (152-406); RBC Red Blood Cell Count 3.66 M/uL (4.33-5.43); Red Cell Distribution Width 12.3 % (12.1-15.2)
[2024-07-24 06:32] LABS: Anion Gap 9.1 mEq/L (5.0-15.0); Potassium 4.1 mEq/L (3.5-5.1)
[2024-07-24] MEDS: INSULIN REGULAR (HUMAN) 100 UNIT/ML SQ SCH ×2 (08:28→16:56)
--- NOTE | 2024-07-24 12:47 | EKG ---
Test Date: 2024-07-21 Test Time: 16:11:46 Research Fellow: MILANA MEASUREMENT RESULTS: Intervals: Rate: 109 VA: 136 QRSD: 146 QT: 352 QTc: 474 [place]: P: 72 VA: 136 QRS: -60 T: 49 INTERPRETIVE STATEMENTS: Sinus tachycardia Left axis deviation Right bundle branch block Inferior infarct, age undetermined Abnormal ECG Compared to ECG 05/05/2021 13:55:41 Left-axis deviation now present Myocardial infarct finding now present Sinus rhythm no longer present Electronically Signed On 07-24-24 12:40:40 CDT by Rohan Guerra
--- NOTE | 2024-07-24 14:41 | P.PN ---
Subjective Date of Service: 07/24/24 Chief Complaint: Diabetic foot Subjective: No chest pain or shortness of breath. No nausea or vomiting. No abdominal pain. No obvious bleeding. Looks comfortable in the bed. Right foot is numb, difficult to evaluate pain. Objective: General appearance: Alert and comfortable CVS: Normal S1 and S2 Lungs: Clear to auscultation bilaterally Abdomen: Soft, bowel sounds present, no tenderness Extremities: No left lower extremity edema. Mild edema of right leg. Right foot has dressing. Right foot pictures reviewed, middle 2 toes are dark- colored, deep appearing wound on plantar aspect Physical Examination - Vital Signs Temperature: 97.9 F Blood Pressure: 129/67 Pulse: 87 Respirations: 17 Pulse Ox (%): 97 Assessment And Plan - Plan 1. Diabetic foot infection with foreign body on xray -Leukocytosis: Improving -Started on IV antibiotic -Surgical consult on board -f/u cultures-neg so far - s/p surgery on 07/22, requested ID consult - Venous ultrasound negative except right inguinal lymphadenopathy which is probably reactive. 2. Hyponatremia Probably related to volume depletion and hyperglycemia, sodium improving. 3. Hypertension -Continue lisinopril, monitor closely. 4. Hyperlipidemia 5. Diabetes uncontrolled with hyperglycemia increase Lantus and mealtime insulin Accu-Chek before every meal and at bedtime cont SSI 6. Anemia: sec to acute illness, monitor Plan discussed with the patient and nursing staff. All questions answered. Further plan depending on ID and surgical team recs, may need toe amputation
--- NOTE | 2024-07-24 19:58 | CON ---
History Of Present Illness: This is a 59-year-old male. I was consulted for evaluation of osteomyel itis and diabetic foot ulcer and IV antibiotic management. The patient has significant past medical history of hypertension, diabetes mellitus. 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 Came in because of worsening infection of right foot as patient walks barefoot. D enies any trauma. The patient was surgically debrided and pus was drained as per surgical team. Past Medical History: As per HPI. Social History: Tobacco positive. Alcohol negative. Family History: Noncontributory except diabetes mellitus and hypertension. Medications: Include vancomycin and Zosyn. See MARs for other medications. Allergies: NO KNOWN DRUG ALLERGIES. Review of Systems: A 10-point review was performed. Physical Examination: General: This is a 59-year-old male, sitting in bed, not in any acute cardiopulmonary distress. Vital Signs: Temperature 97, pulse 83, respirations 17, blood pressure 175/87. HEENT: Unremarkable. Neck: Supple. Lungs: Clear to auscultation. Heart: S1, S2. Regular. Abdomen: Soft, nontender. Bowel sounds present. Extremities: Right foot diabetic foot ulcer and abscess formation, status post debridement. MRI of the foot shows the patient has second toe osteomyelitis. Assessment/plan: 1. Osteomyelitis of the right foot second toe with cellulitis and diabetic foot ulcer in a patient wh o is noncompliant to medications with the A1c of more than 10, currently being managed with insulin. 2. Diabetic neuropathy. 3. Cellulitis of right lower extremity. 4. Leukocytosis. 5. Anemia of chronic disease. Continue current antibiotic. Prognosis guarded. We will follow the patient as needed. Thank you, Dr. Clark, for consult. NF/MODL Voice ID: [id number] Report ID: [id number]
[2024-07-24] MEDS: INSULIN GLARGINE 100 UNIT/ML SQ SCH (20:22)
[2024-07-25] MEDS ORDERED: MELATONIN 5 MG TABLET PO PRN (00:10)
[2024-07-25 04:49] LABS: Absolute Eosinophils 0.3 K/uL (0-0.5); Absolute Lymphocytes (CBC) 1.6 K/uL (0.7-4.9); Absolute Monocytes 0.9 K/uL (0.1-1.3); Basophils % 0.6 % (0-1.3); Eosinophils % 4.1 % (0-4.4); Hematocrit 34.9 % (39.6-49.0); Hemoglobin 12.1 g/dL (13.6-17.9); Lymphocytes % 20.6 % (15.3-44.8); MCH 32.8 pg (27.0-35.0); MCHC 34.7 g/dL (32.0-36.0); MCV 94.5 fL (80-100); MPV 7.3 fL (7.6-11.3); Monocytes % 11.9 % (3.3-12.3); Neutrophils % 62.8 % (41.7-73.7); Platelets 461 thou/uL (152-406); RBC Red Blood Cell Count 3.69 M/uL (4.33-5.43); Red Cell Distribution Width 12.3 % (12.1-15.2)
[2024-07-25 04:57] LABS: Anion Gap 6.1 mEq/L (5.0-15.0); Potassium 4.1 mEq/L (3.5-5.1)
[2024-07-25] MEDS: AMPICILLIN/SULBACT 3 GM in NA CHLORIDE 0.9% 100 ML IVPB SCH (12:27)
[2024-07-25] MEDS: INSULIN REGULAR (HUMAN) 100 UNIT/ML SQ SCH (12:29)
--- NOTE | 2024-07-25 13:57 | RAD REPORT ---
EXAM: Lower Ext Angio HISTORY: CT angio with lower extremity run off COMPARISON: None TECHNIQUE: Multiple contiguous axial images were obtained a CTA of the bilateral lower extremities wi th contrast. Sagittal and coronal 3-D MIP reformats were performed. FINDINGS: Right lower extremity: INFLOW: Atherosclerotic plaque but not flow limiting stenosis. OUTFLOW (FEM-POP): Atherosclerotic plaque but not flow limiting stenosis. OUTFLOW (Infrapopliteal): Mild to moderate focal stenosis at the origin of the anterior tibial artery but otherwise patent. The tibioperoneal trunk is patent. The posterior tibial and peroneal arteries are both patent. Three-vessel runoff. Left lower extremity: INFLOW: Atherosclerotic plaque but not flow limiting stenosis. OUTFLOW (FEM-POP): Atherosclerotic plaque but not flow limiting stenosis. OUTFLOW (Infrapopliteal): Mild to moderate narrowing at the proximal anterior tibial artery but the v essel is otherwise patent. The tibioperoneal trunk is patent. The posterior tibial artery is patent. The peroneal artery is patent. IMPRESSION: Mild bilateral lower extremity peripheral vascular disease but without evidence of significant flow-l imiting stenoses. Three-vessel runoff is present bilaterally.
--- NOTE | 2024-07-25 15:51 | P.PN ---
Subjective Date of Service: 07/25/24 Chief Complaint: Diabetic foot Subjective: No chest pain or shortness of breath. No nausea or vomiting. No abdominal pain. No obvious bleeding. Looks comfortable in the bed. Right foot is numb, difficult to evaluate pain. Objective: General appearance: Alert and comfortable CVS: Normal S1 and S2 Lungs: Clear to auscultation bilaterally Abdomen: Soft, bowel sounds present, no tenderness Extremities: No left lower extremity edema. Mild edema of right leg. Right foot has dressing. Physical Examination - Vital Signs Temperature: 97.9 F Blood Pressure: 146/86 Pulse: 69 Respirations: 16 Pulse Ox (%): 100 Assessment And Plan - Plan 1. Diabetic foot infection with foreign body on xray -Leukocytosis: Improving -Started on IV antibiotic -Surgical consult on board - cultures reviewed, changed ABX to unasyn today - s/p surgery on 07/22, requested ID consult - Venous ultrasound negative except right inguinal lymphadenopathy which is probably reactive. -CTA mild disease 2. Hyponatremia Probably related to volume depletion and hyperglycemia, sodium improving. 3. Hypertension -incrase lisinopril, monitor closely. 4. Hyperlipidemia: statin 5. Diabetes uncontrolled with hyperglycemia increase Lantus and mealtime insulin Accu-Chek before every meal and at bedtime cont SSI 6. Anemia: sec to acute illness, monitor Plan discussed with the patient and nursing staff. All questions answered. Further plan depending on ID and surgical team recs, may need toe amputation
[2024-07-25] MEDS: ATORVASTATIN 20 MG TAB PO SCH (20:50)
[2024-07-25] MEDS: lisinopriL 20 MG TAB PO SCH (20:50)
[2024-07-25] MEDS: INSULIN GLARGINE 100 UNIT/ML SQ SCH (20:51)
--- NOTE | 2024-07-25 22:35 | PN ---
Subjective: The patient lying in bed. No new acute event. Denies any headache, nausea, vomiting, c hest pain, abdominal pain, constipation, or diarrhea. Objective: Vital Signs: Temperature 97, pulse 73, respirations 18, blood pressure 172/82. Lungs: Basal crackles. Heart: S1, S2. Regular. Abdomen: Soft, nontender. Bowel sounds present. Extremities: No edema. Wounds noted. Laboratory Data: Shows WBC 7.9, hemoglobin 12.1, platelets 461. Purplish discoloration noted at the toes. BUN of 9, creatinine 0.8. Vancomycin trough of 13.3. Lower extremity CT angio showed mild b ilateral lower extremity peripheral vascular disease without evidence of significant flow-limiting st enosis. Assessment And Plan: 1. Diabetic foot ulcer and abscess formation, status post I and D. Continue IV antibiotic for 6 week s. I agree with changing to Unasyn as patient is growing Enterococcus faecalis and Klebsiella oxytoc a from the wound culture. Consider using Betadine to the wound site. 2. Diabetic neuropathy. 3. Uncontrolled diabetes mellitus. Monitor signs of infection with WBC and fever trends. NF/MODL Voice ID: [id number] Report ID: [id number]
[2024-07-26 06:06] LABS: Absolute Basophils 0.1 K/uL (0-0.5); Absolute Eosinophils 0.3 K/uL (0-0.5); Absolute Lymphocytes (CBC) 1.9 K/uL (0.7-4.9); Eosinophils % 4.1 % (0-4.4); Hematocrit 37.8 % (39.6-49.0); Hemoglobin 12.8 g/dL (13.6-17.9); Lymphocytes % 22.6 % (15.3-44.8); MCH 32.5 pg (27.0-35.0); MCHC 33.9 g/dL (32.0-36.0); MCV 95.7 fL (80-100); MPV 7.2 fL (7.6-11.3); Monocytes % 11.9 % (3.3-12.3); Neutrophils % 60.4 % (41.7-73.7); Platelets 483 thou/uL (152-406); RBC Red Blood Cell Count 3.95 M/uL (4.33-5.43); Red Cell Distribution Width 12.2 % (12.1-15.2)
[2024-07-26 06:23] LABS: Anion Gap 5.3 mEq/L (5.0-15.0); Potassium 4.3 mEq/L (3.5-5.1)
[2024-07-26] MEDS: lisinopriL 20 MG TAB PO SCH (09:06)
[2024-07-26] MEDS: POVIDONE-IODINE 118.25 ML BOTTLE TOP SCH (12:00)
--- NOTE | 2024-07-26 14:19 | P.PN ---
Subjective Date of Service: 07/26/24 Chief Complaint: Diabetic foot Subjective: No chest pain or shortness of breath. No nausea or vomiting. No abdominal pain. No obvious bleeding. Looks comfortable in the bed. Right foot is numb, difficult to evaluate pain. Objective: General appearance: Alert and comfortable CVS: Normal S1 and S2 Lungs: Clear to auscultation bilaterally Abdomen: Soft, bowel sounds present, no tenderness Extremities: No left lower extremity edema. Mild edema of right leg. Right foot has dressing. Physical Examination - Vital Signs Temperature: 98 F Blood Pressure: 149/83 Pulse: 63 Respirations: 16 Pulse Ox (%): 98 Assessment And Plan - Plan 1. Diabetic foot infection with foreign body on xray -Leukocytosis: Improving -Started on IV antibiotic -Surgical consult on board - cultures reviewed, changed ABX to unasyn on 07/25, ID agreed - s/p surgery on 07/22, requested ID consult - Venous ultrasound negative except right inguinal lymphadenopathy which is probably reactive. -CTA mild disease 2. Hyponatremia Probably related to volume depletion and hyperglycemia, sodium improving. 3. Hypertension -incrase lisinopril, monitor closely. 4. Hyperlipidemia: statin 5. Diabetes uncontrolled with hyperglycemia continue Lantus and mealtime insulin Accu-Chek before every meal and at bedtime cont SSI 6. Anemia: sec to acute illness, monitor Plan discussed with the patient and nursing staff. All questions answered. Further plan depending on ID and surgical team recs, tentative surgery next week depending on clinical improvement as per Dr. Rosado. 59-year-old patient admitted with diabetic foot infection, he had surgery last week, cultures reviewed, currently on IV Unasyn, poorly controlled blood pressure, increased the dose of lisinopril today, poorly controlled diabetes but with the insulin adjustment blood sugars are improving today, depending on the clinical progress next week, he can either go home on IV antibiotics or if the wound is still not looking good, he will have further debridement.
[2024-07-26] MEDS: CIPROFLOXACIN 400 MG/200 ML IVPB IV SCH (21:19)
--- NOTE | 2024-07-27 00:28 | P.PN ---
Date of Service: 07/26/24 Subjective: The patient lying in bed. No new acute event. Denies any headache, nausea, vomiting, chest pain, abdominal pain, constipation, or diarrhea Objective: Vital Signs: Temp Pulse Resp BP Pulse Ox 98.2 F 76 17 173/74 H 96 07/26/24 20:00 07/26/24 20:00 07/26/24 20:00 07/26/24 20:00 07/26/24 20:00 neuro: aox3, verbal and respond appropriately general: alert and not in distress Lungs: CTA Heart: S1, S2. Regular. Abdomen: Soft, nontender. Bowel sounds present. Extremities: mild edema to right leg. Skin: right foot dressing. necrotic DM ulcer s/p debridement Laboratory Data: Shows WBC 8.3, hemoglobin 12.8, platelets 483. . BUN of 8, creatinine 0.8.Vancomycin trough of 13.3 Imaging 07/23 MRI right foot: The proximal phalanx of the second toe demonstrates elevated T2/IR signal. Mild edema is also present in the surrounding tissues. This may be related to localized stress response or trauma. No T1 replacement to suggest osteomyelitis at this time. 07/[address] angio showed mild bilateral lower extremity peripheral vascular disease without evidence of significant flow-limiting stenosis. would culture 07/22: right foot: no anaerobes grown 4. right foot K. Oxytoca and Enterococcus faecalis 4. right foot K. Oxytoca and Enterococcus faecalis blood culture 07/21 no growth in 5 days Assessment 1. Diabetic foot ulcer and abscess formation, status post I and D. Continue IV antibiotic for 6 weeks. I agree with changing to Unasyn as patient is growing Enterococcus faecalis and Klebsiella oxytoca from the wound culture. 2. Diabetic neuropathy. 3. Uncontrolled diabetes mellitus. Plan Monitor signs of infection with WBC and fever trends switch from unasyn to cipro due to sensitivities. Dr stahl notified and agreed with plan. continue abx for total of 6 weeks. wound culture growing Enterococcus faecalis and Klebsiella oxytoca from the wound culture. wound care support and offloading diabete education. pt verbalized understanding case discussed and in agreement with Dr em
[2024-07-27 06:12] LABS: Absolute Basophils 0.1 K/uL (0-0.5); Absolute Eosinophils 0.3 K/uL (0-0.5); Absolute Neutrophil 4.9 K/uL (1.8-8.0); Basophils % 1.1 % (0-1.3); Eosinophils % 3.3 % (0-4.4); Hematocrit 34.5 % (39.6-49.0); Hemoglobin 11.9 g/dL (13.6-17.9); MCH 32.7 pg (27.0-35.0); MCHC 34.4 g/dL (32.0-36.0); MCV 95.1 fL (80-100); MPV 7.3 fL (7.6-11.3); Monocytes % 11.7 % (3.3-12.3); Neutrophils % 59.9 % (41.7-73.7); Nucleated Red Blood Cells % 0.1 % (0-0); Platelets 475 thou/uL (152-406); RBC Red Blood Cell Count 3.62 M/uL (4.33-5.43); Red Cell Distribution Width 12.5 % (12.1-15.2)
--- NOTE | 2024-07-27 12:56 | P.PN ---
Date of Service: 07/27/24 Subjective Chief Complaint: Diabetic foot Subjective: Resting comfortably in bed. No acute complaints. Denies fevers and chills Review of systems 10 point review of systems otherwise negative Physical Examination - Vital Signs Temperature: 98.1 F Blood Pressure: 166/95 Pulse: 63 Respirations: 16 Pulse Ox (%): 99 Objective: General appearance: Alert and comfortable CVS: Normal S1 and S2 Lungs: Clear to auscultation bilaterally Abdomen: Soft, bowel sounds present, no tenderness Extremities: No left lower extremity edema. Mild edema of right leg. Right foot has dressing. Assessment And Plan - Plan 1. Diabetic foot infection with foreign body on xray -Leukocytosis: Improving -Continue IV antibiotics as per infectious disease recommendations -Appreciate surgery recommendation - cultures reviewed, changed ABX to unasyn on 07/25--> now on ciprofloxacin for 6 weeks, ID agreed - s/p surgery on 07/22, - Venous ultrasound negative except right inguinal lymphadenopathy which is probably reactive. -CTA mild disease 2. Hyponatremia Resolved 3. Hypertension -incrase lisinopril, monitor closely. 4. Hyperlipidemia: statin 5. Diabetes uncontrolled with hyperglycemia Blood sugar improving continue Lantus and mealtime insulin Accu-Chek before every meal and at bedtime cont SSI 6. Anemia: sec to acute illness, monitor DVT prophylaxis with SCDs
[2024-07-27 23:15] VITALS: O2SAT 98
[2024-07-28 06:11] LABS: Absolute Basophils 0.1 K/uL (0-0.5); Absolute Eosinophils 0.2 K/uL (0-0.5); Absolute Lymphocytes (CBC) 1.9 K/uL (0.7-4.9); Absolute Monocytes 0.9 K/uL (0.1-1.3); Absolute Neutrophil 5.2 K/uL (1.8-8.0); Hematocrit 36.9 % (39.6-49.0); Hemoglobin 12.5 g/dL (13.6-17.9); Lymphocytes % 22.7 % (15.3-44.8); MCH 32.1 pg (27.0-35.0); MCHC 33.8 g/dL (32.0-36.0); MPV 7.2 fL (7.6-11.3); Monocytes % 11.2 % (3.3-12.3); Neutrophils % 62.1 % (41.7-73.7); Nucleated Red Blood Cells % 0.1 % (0-0); Platelets 528 thou/uL (152-406); RBC Red Blood Cell Count 3.88 M/uL (4.33-5.43); Red Cell Distribution Width 12.3 % (12.1-15.2)
[2024-07-28 06:22] LABS: Anion Gap 6.1 mEq/L (5.0-15.0); Magnesium 2.3 mg/dL (1.6-2.4); Phosphorus 3.7 mg/dL (2.5-4.9); Potassium 4.1 mEq/L (3.5-5.1)
--- NOTE | 2024-07-28 10:27 | P.DS ---
Admission Date: 07/21/24 Discharge Date: 07/28/24 Disposition: ROUTINE DISCHARGE Discharge Condition: FAIR Reason for Admission: Diabetic foot Hospital Course: 59-year-old male with a past medical history of diabetes, hypertension, hyp erlipidemia presenting with diabetic foot infection with hyperglycemia. Upon admission he was started on IV antibiotics. Infectious disease and general surgery was consulted. Imaging did not reveal any osteomyelitis. Cultures were obtained and sensitivities resulted in ciprofloxacin twice daily for the next 6 weeks. He will follow-up with his PCP upon. The remainder of his medical problems were chronic and stable hyponatremia resolved with fluid use and his hyperglycemia was controlled with Lantus and sliding scale insulin. He is being discharged with metformin and follow-up with his primary care physician. In addition he has been given information on the wound healing center for further treatment. Vital Signs/Physical Exam: Temp Pulse Resp BP Pulse Ox 98.4 F 66 16 151/85 H 98 07/28/24 08:00 07/28/24 08:34 07/28/24 08:00 07/28/24 08:34 07/28/24 08:00 Laboratory Data at Discharge: WBC 8.40 thou/uL (4.3-10.9) 07/28/24 05:38 Hgb 12.5 g/dL (13.6-17.9) L 07/28/24 05:38 Hct 36.9 % (39.6-49.0) L 07/28/24 05:38 Plt Count 528 thou/uL (152-406) H 07/28/24 05:38 PT 13.9 SECONDS (10-13.0) H 07/21/24 16:25 INR 1.23 07/21/24 16:25 Sodium 138 mEq/L (136-145) 07/28/24 05:38 Potassium 4.1 mEq/L (3.5-5.1) 07/28/24 05:38 BUN 9 mg/dL (7-18) 07/28/24 05:38 Creatinine 0.83 mg/dL (0.70-1.30) 07/28/24 05:38 Glucose 168 mg/dL (74-106) H 07/28/24 05:38 Phosphorus 3.7 mg/dL (2.5-4.9) 07/28/24 05:38 Magnesium 2.3 mg/dL (1.6-2.4) 07/28/24 05:38 Total Bilirubin 0.5 mg/dL (0.2-1.0) 07/22/24 05:49 AST 11 U/L (15-37) L 07/22/24 05:49 ALT 17 U/L (16-61) 07/22/24 05:49 Alkaline Phosphatase 99 U/L (45-117) D 07/22/24 05:49 Home Medications: Atorvastatin Calcium [Lipitor*] 20 mg PO BEDTIME #30 tab 07/28/24 Ciprofloxacin HCl [Cipro 500 MG Tablet] 500 mg PO BID 45 Days #60 tab 07/28/24 Metformin HCl [Metformin HCl ER] 500 mg PO BID 30 Days #60 tab 07/28/24 lisinopriL [Prinivil*] 20 mg PO BID #60 tab 07/28/24 New Medications: Ciprofloxacin HCl [Cipro 500 MG Tablet] 500 mg PO BID 45 Days #60 tab Atorvastatin Calcium [Lipitor*] 20 mg PO BEDTIME #30 tab Metformin HCl [Metformin HCl ER] 500 mg PO BID 30 Days #60 tab lisinopriL [Prinivil*] 20 mg PO BID #60 tab Followup: NONE,NONE [Primary Care Provider] -
[2024-07-28 12:16] VITALS: BP 146/65; TEMP 98
== END 2024-07-28 18:06 | disposition home or self-care (01) | DRG 264 ==
LOC: ER 15:33 → ERHOLD 20:00 → 4TH 20:22
PROVIDERS: ADMIT Family Medicine; ATTEND Family Medicine
PROC: 0JBQ0ZZ Excision of Right Foot Subcutaneous Tissue and Fascia, Open Approach (ICD-10-PCS; principal; 2024-07-22 16:45)
DX: E11.52 Type 2 diabetes mellitus with diabetic peripheral angiopathy with gangrene (principal); L03.115 Cellulitis of right lower limb; E87.1 Hypo-osmolality and hyponatremia; M86.171 Other acute osteomyelitis, right ankle and foot; L02.611 Cutaneous abscess of right foot; E11.69 Type 2 diabetes mellitus with other specified complication; E11.65 Type 2 diabetes mellitus with hyperglycemia; E11.40 Type 2 diabetes mellitus with diabetic neuropathy, unspecified; E11.628 Type 2 diabetes mellitus with other skin complications; E11.621 Type 2 diabetes mellitus with foot ulcer; L97.519 Non-pressure chronic ulcer of other part of right foot with unspecified severity; I10 Essential (primary) hypertension; E66.9 Obesity, unspecified; E86.0 Dehydration; D64.9 Anemia, unspecified; E78.5 Hyperlipidemia, unspecified; D72.829 Elevated white blood cell count, unspecified; F17.210 Nicotine dependence, cigarettes, uncomplicated; B95.2 Enterococcus as the cause of diseases classified elsewhere; B96.1 Klebsiella pneumoniae [K. pneumoniae] as the cause of diseases classified elsewhere; Z68.32 Body mass index [BMI] 32.0-32.9, adult; Z79.84 Long term (current) use of oral hypoglycemic drugs; Z79.899 Other long term (current) drug therapy; Z91.148 Patient's other noncompliance with medication regimen for other reason
CPT/HCPCS: 36415; 71045; 73706; 80048; 80053; 80076; 80202; 82947; 83036; 83605; 83735; 83880; 83930; 83935; 84100; 84300; 84484; 85025; 85610; 87040; 87070; 87075; 87077; 87186; 87205; 88304; 90715; 93005; 93970; 94010; 96372; 99285; J0295; J0744; J1650; J1815; J2003; J2250; J2270; J2405; J2543; J2704; J3010; J3370; J3590; J7030; J7040; Q9967